=== PATIENT | female | born 1980 | race Caucasian/White ===

== ENCOUNTER → 2017-12-03 14:28 | Outpatient (CLI) | payer MEDICAID, SELFPAY ==
--- NOTE | 2017-12-03 14:30 | CT_ITS ---
CT chest wo con HISTORY: Solitary pulmonary nodule, follow-up abnormal chest x-ray ITS.REASON: lung nodule ORDERING PHYSICIAN: ANDERS Gordon PATIENT AGE: 37 years Technique: Axial images obtained. Sagittal and coronal reformatted images are also generated and reviewed. All CT scans at the facility use one or more dose reduction, viz: automated exposure control; ma/kV adjustment per patient size (including targeted exams where dose is matched to indication; i.e. head); or iterative reconstruction technique. CONTRAST: None COMPARISON: 11/18/2017 FINDINGS: No mediastinal or hilar mass. Normal heart size without evidence of pericardial effusion. There is a benign-appearing calcified granuloma in the right upper lobe corresponding to the abnormality noted on the radiograph and rib detail films. Mild atelectatic or fibrotic changes are present in the inferior aspect of the right upper lobe. A smaller calcified granulomas present in the right lower lobe anteriorly There is mild bronchial thickening with minimal coarsening of the bronchovascular markings which may be related to smoking-related lung disease. Calcified granuloma is present in the superior segment of the left lower lobe There are scattered small lymph nodes in the axilla measuring up to 18 x 11 mm in the left axilla and 22 x 12 mm in the right axilla. A QUALITY AUDIT REPRESENTATIVE shunt traverses the anterior chest wall in the subcutaneous tissues just to the right of midline. The shunt tube does appear disrupted as described in the radiograph report in the presternal region. IMPRESSION: 1. Radiographic abnormality corresponds to benign-appearing calcified granuloma. There are other benign-appearing calcified granulomas as well indicating old granulomatous disease. 2. No suspicious pulmonary nodules evident. 3. Hyperinflation with bronchial thickening and mild coarsening of the bronchovascular markings suggesting smoking-related lung disease. 4. Mild axillary adenopathy. 5. Disrupted QUALITY AUDIT REPRESENTATIVE shunt HEART: Unremarkable. Normal heart size. No significant pericardial effusion. MEDIASTINAL AND HILAR STRUCTURES: No mediastinal or hilar mass evident. No dominant adenopathy. PULMONARY ARTERIES: No pulmonary embolus evident. AORTA: No acute finding. No thoracic aortic aneurysm or dissection evident LUNGS: Unremarkable. No mass or consolidation. PLEURAL SPACES: No significant effusion. No evidence of pneumothorax. BONY STRUCTURES: No acute bony abnormalities apparent LYMPH NODES: No enlarged lymph nodes evident UPPER ABDOMEN: Unremarkable ADDITIONAL FINDINGS: No other significant abnormalities IMPRESSION:
== END ==
PROVIDERS: Family Provider Family Medicine; PCP Physician Assistant; Visit Provider Physician Assistant
DX: R91.1 Solitary pulmonary nodule (principal)
CPT/HCPCS: 71250

== ENCOUNTER → 2019-03-13 10:33 | Outpatient (CLI) | payer MEDICAID, SELFPAY ==
--- NOTE | 2019-03-13 10:38 | CT_ITS ---
PROCEDURE: CT SOFT TISSUE NECK WO/W CON CLINICAL HISTORY: Intraventricular shunt dysfunction Shunt dysfunction, broken shunt in mid neck with discomfort feeling the scant thank COMPARISON: CXR2V XR chest 2V from 11/18/[address] chest wo con from 12/03/2017 TECHNIQUE: Oral Contrast: 75ml Optiray 350 IV Contrast: None Axial images obtained with sagittal and coronal reformats. All CT scans at the facility use one or more dose reduction, viz: automated exposure control, ma/kV adjustment per patient size (including targeted exams where dose is matched to indication, i.e. head), or iterative reconstruction technique. FINDINGS: There is a shunt tube noted traversing the right side of the neck. The proximal aspect is not visualized in the distal aspect is not visualized. The shunt tube does not appear discontinuous in the neck. The shunt tube appears thickened in the neck becoming normal caliber at the lower cervical region and in the coming thickened again at the supraclavicular area and may be due to partial calcification of the shunt. There is no abscess or fluid collection around the shunt tube. The shunt is in the subcutaneous tissues and not within the in the muscular structures or deep fascial planes. Scattered small lymph nodes are present in the neck. The parotid and submandibular glands have an unremarkable appearance. The nasopharynx, oropharynx, hypopharynx, and larynx have an unremarkable appearance as does the thyroid gland. The lung apices show no acute finding. There are mild degenerative changes in the lower cervical spine with mild degenerative disc disease at C5-6 and mild cervical curvature convex left. IMPRESSION: 1. LEAD OXIDE MILL TENDER shunt present as described above which appears thickened in portions of the shunt suggesting calcification. The shunt does not appear discontinuous in the imaged portions on this exam 2. No abnormal fluid collections or abnormal position of the shunt. 3. Scattered small lymph nodes in the neck Dictated by: Mushtaq Arnett MD 03/13/2019 14:25 Signed by: <Electronically signed by Mushtaq Arnett MD in [place]> 03/13/2019 14:25
== END ==
PROVIDERS: PCP Physician Assistant; Visit Provider Physician Assistant
DX: M54.2 Cervicalgia (principal); R13.10 Dysphagia, unspecified; Z98.2 Presence of cerebrospinal fluid drainage device
CPT/HCPCS: 70492; Q9967

== ENCOUNTER 2020-01-04 18:42 | Emergency (ER) | payer MEDICAID, SELFPAY ==
[2020-01-04 18:43] VITALS: BP 131/86; PULSE 88; RESP 17; TEMP 36.6; O2SAT 100; BMI 30.8
--- NOTE | 2020-01-04 19:00 | HMH.EDUTC ---
[facility] [place] Disposition Clinical Impression: Conjunctivitis Qualifiers: Conjunctivitis type: unspecified Laterality: right Qualified Code(s): H10.9 - Unspecified conjunctivitis Disposition: Home, Self-Care Condition on Discharge: Good Instructions: Conjunctivitis, DI for Conjunctivitis, Gentamicin Ophthalmic Additional Instructions: Make sure to clean eye well with baby shampoo and water to remove matting and drainage from eye *Make sure to wash hands well before and after applying drops Return if needed Follow up with Eye Doctor if no improvement and immediately if any worsening of symptoms Straight to ER if any life threatening symptoms Follow up with PCP if needed Prescriptions: Gentamicin Sulfate [Garamycin 0.3% opth hortensia 5mL] 1 - 2 drops EYE-RIGHT Q4H #1 drops Prescription Printed Referrals: Rosi Davis PA [Primary Care Provider] - As needed Dr Salas [Other] Time of Disposition: 19:07 Medical Decision Making - Arpan Inquiry Pt receiving controlled substance: No Arpan was queried for this patient: No Vital Signs: 01/04/20 18:43 Temperature 97.8 F Temperature Source Oral Pulse Rate [Radial] 88 Respiratory Rate 17 Blood Pressure [Right Arm] 131/86 Blood Pressure Mean [Right Arm] 101 Blood Pressure Source [Right Arm] Automatic Cuff Blood Pressure Position [Right Arm] Sitting 02 Sat by Pulse Oximetry 100 Oxygen Delivery Method Room Air [facility] [place] HPI - General Stated complaint: Possible pink eye Time Seen by Provider: 01/04/20 19:00 Mode of Arrival: Ambulatory Source of Information: Patient Limitations: No Limitations Description of Symptoms (Recalled from Triage Doc. by RN): possible pink eye HEENT Symptoms (Recalled from RN notes): Yes Resp Symptoms (Recalled from RN notes): No Skin Symptoms (Recalled from RN notes): No MS Symptoms (Recalled from RN notes): No Functional Status (Recalled from RN notes): wnl - History of Present Illness Provider Complaint: Patient states that for the last couple of days her right eye was getting red and irritated States that she thought it was stress and would go away and started having some drainage from it and having matting and someone told her it looked like pink eye so she came in to get it checked - Related Data Previous Rx's Medication Instructions Recorded cephALEXin [Keflex 500mg Cap] 500 mg PO Q6H 7 Days #28 cap 05/08/19 desmopressin 0.2 mg tablet 0.2 mg PO BID #180 tab 10/14/19 Gentamicin Sulfate [Garamycin 0.3% 1 - 2 drops EYE-RIGHT Q4H #1 drops 01/04/20 opth hortensia 5mL] Allergies Allergy/AdvReac Type Severity Reaction Status Date / Time No Known Allergies Allergy Verified 02/27/19 15:29 - Worker's Comp Is this a Worker's Comp case?: No [facility] History - Hepatitis A Screen Drug use history?: No High risk sexual behaviors?: No History of sexually transmitted infection?: No Currently employed?: No Childcare worker?: No Do you have indoor plumbing?: Yes Do you have electricity?: Yes Attestation statement:: This patient has been screened for Hepatitis A risk factors. I have reviewed the patient's past medical history: Yes Medical History: Reports:: Deep Vein Thrombosis Denies:: Cancer, Diabetes Mellitus Type 1, Diabetes Mellitus Type 2, Hypertension, MRSA Laterality Cases: Bilateral: Tonsillectomy Other Surgeries: Yes: Amputation: No Fractures: No Comment: Brain surgery, aneurysm. - Social History Educational Level: Completed High School Smoking Status: Current every day smoker Tobacco Type: cigarettes # Packs/Day (cigarettes): 1 Alcohol Intake: never Substance Use Type: denies use Occupational Status: employed Housing: house Family Hx:: Heart Attack, Thyroid Disorder, Coronary Artery Disease, Hypertension ROS Obtained: Yes All systems reviewed & no additional complaints, Yes Systems reviewed as appropriate & no additional complaints - Eyes Eyes: Reports eye discharge, Reports other (redness and mild swell
[2020-01-04 19:08] VITALS: BP 131/86; PULSE 88; RESP 17; TEMP 36.6; O2SAT 100
== END 2020-01-04 19:10 | disposition home or self-care (01) ==
PROVIDERS: Emergency Provider Nurse Practitioner; PCP Physician Assistant
DX: H10.31 Unspecified acute conjunctivitis, right eye (principal); F17.210 Nicotine dependence, cigarettes, uncomplicated; Z86.718 Personal history of other venous thrombosis and embolism; Z90.09 Acquired absence of other part of head and neck
CPT/HCPCS: 99201

== ENCOUNTER 2020-04-16 05:58 | Emergency (ER) | payer MEDICAID, SELFPAY ==
[2020-04-16 06:01] VITALS: BP 147/83; PULSE 79; RESP 18; TEMP 37; O2SAT 98; BMI 32.3
--- NOTE | 2020-04-16 06:01 | ECG_ITS ---
APPROVED REPORT Exam: Resting ECG HR:75 bpm ECG Measurements Heart Rate 75 AXES UT 172 P 70 QRSd 84 QRS 54 QT 406 T 20 QTc 453 <Conclusion> Normal sinus rhythm Normal ECG Electronically signed by : Vishal Allred, 04/17/2020 06:25:37
--- NOTE | 2020-04-16 06:07 | XR_ITS ---
PROCEDURE: XR CHEST 2V CLINICAL HISTORY: CHEST PRESSURE COMPARISON: CR CXR2V XR chest 2V from 11/18/2017 CR [id number] XR ribs LT min 3V w CXR1V from 11/18/[address] chest wo con from 12/03/2017 FINDINGS: Mild cardiomegaly without failure. There is silhouetting out of the right heart border with increased density along the right heart border similar to the previous exam consistent with overlying vasculature. No acute bony abnormalities. A TRIMMING CASER shunt is present on the right. The lower thoracic and upper abdominal component however is not well demonstrated. IMPRESSION: No acute findings. Dictated by: Mushtaq Arnett MD 04/16/2020 06:41 Mushtaq Arnett MD in [place] 04/16/2020 06:41
--- NOTE | 2020-04-16 06:14 | HMH.EDGENADL ---
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 Follow up with your PCP for chest pain, return if symptoms worsen or you have concerns regarding your condition. Referrals: Rosi Davis PA [Primary Care Provider] - - Critical Care Critical Care Time: No Attestation: On 04/16/20, the high probability of a clinically significant, sudden or life threatening deterioration of the following system(s) required my full and direct attention, intervention and personal management. The time I documented below is in addition to time spent performing reported procedures but includes the following listed in this critical care notation. Medical Decision Making - Medical Records Medical records reviewed: Yes: I reviewed the patient's medical records. - Arpan Inquiry Pt receiving controlled substance: No Vital Signs: 04/16/20 06:01 04/16/20 07:07 04/16/20 08:42 Temperature 98.6 F Temperature Source Oral Pulse Rate Pulse Rate [Left] 79 60 58 L Respiratory Rate 18 16 Blood Pressure Blood Pressure [Right Arm] 147/83 H 131/77 116/72 Blood Pressure Mean [Right Arm] 104 95 86 Blood Pressure Source Blood Pressure Source [Right Arm] Automatic Cuff Automatic Cuff Automatic Cuff Blood Pressure Position Blood Pressure Position [Right Arm] Sitting Sitting Sitting 02 Sat by Pulse Oximetry 98 97 98 Oxygen Delivery Method Room Air Room Air Room Air 04/16/20 09:19 Temperature 98.6 F Temperature Source Oral Pulse Rate 69 Pulse Rate [Left] Respiratory Rate 19 Blood Pressure 123/71 Blood Pressure [Right Arm] Blood Pressure Mean [Right Arm] Blood Pressure Source Automatic Cuff Blood Pressure Source [Right Arm] Blood Pressure Position Sitting Blood Pressure Position [Right Arm] 02 Sat by Pulse Oximetry Oxygen Delivery Method Room Air - Lab Data Lab Results 04/16/20 06:15: WBC 9.2, RBC 4.77, Hgb 14.6, Hct 42.9, MCV 90.0, MCH 30.7, MCHC 34.1, RDW 13.7, Plt Count 276, MPV 8.2, Neut % (Auto) 58.8, Lymph % (Auto) 27.5, [place] % (Auto) 5.9, Eos % (Auto) 7.1, Baso % (Auto) 0.5, Neut # (Auto) 5.4, Lymph # (Auto) 2.5, [place] # (Auto) 0.5, Eos # (Auto) 0.7 H, Baso # (Auto) 0.1 04/16/20 06:15: Sodium 139, Potassium 4.2, Chloride 102, Carbon Dioxide 27, Anion Gap 14.2, BUN 13, Creatinine 0.60, Estimated Creat Clear 197, Estimated GFR 111, Est GFR ( Amer) 135, Glucose 115 H, Calcium 9.2, Troponin I < 0.01 04/16/20 08:11: Troponin I < 0.01 Result diagrams: 04/16/20 06:15 04/16/20 06:15 Orders (Tests/Meds): ED MEDICATIONS Discontinued Medications Generic Name Dose Route Start Last Admin Trade Name Freq PRN Reason Stop Dose Admin Aspirin 324 mg 04/16/20 06:07 04/16/20 06:11 Aspirin 81mg Chewable Tablet PO 04/16/20 06:08 324 mg ONCE ONE Administration Medical Decision Narrative: At this point, the exact cause of the patient's current symptom complex is unknown. Initial EKG is nondiagnostic and initial delta troponin testing protocols are within normal limits. At the present time, I doubt pulmonary embolus secondary to the lack of tachycardia, tachypnea, or hypoxia. The patient is also PERC negative. 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 Doubt pneumothorax given good bilateral breath sounds and chest X ray with good lung markings out to the periphery. No signs suggestive of pne
--- NOTE | 2020-04-16 06:26 | CT_ITS ---
PROCEDURE: CT ANGIO CHEST CLINCIAL INDICATION: chest pain Chest pain, shortness of air, current smoker COMPARISON: No exams were available for comparison TECHNIQUE: IV Contrast: 70ML OPTIRAY 350 Axial images obtained with sagittal and coronal reformats. All CT scans at the facility use one or more dose reduction, viz: automated exposure control, ma/kV adjustment per patient size (including targeted exams where dose is matched to indication, i.e. head), or iterative reconstruction technique. FINDINGS: HEART AND MEDIASTINAL STRUCTURES: No evidence of pulmonary embolus, aortic aneurysm or dissection. No mediastinal or hilar mass or adenopathy. Mild nonspecific thickening of the distal esophagus is noted. LUNGS AND PLEURAL SPACES: There are minimal atelectatic changes in the right middle lobe. There is evidence of old granulomatous disease. No lobar consolidation or collapse. BONY STRUCTURES: No acute bony abnormalities apparent. UPPER ABDOMEN: There are few small nodes in the celiac region measuring up to 1.4 cm. Mildly prominent portal nodes are present as well at 2.6 cm. ADDITIONAL FINDINGS: There is narrowing of the celiac artery at its ostium of approximately 40-50 percent with mild poststenotic dilatation. IMPRESSION: 1. No evidence of pulmonary embolus. 2. Minimal right middle lobe atelectasis otherwise no acute finding of the chest. 3. Mild adenopathy in the periportal region and epigastric area 4. 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
--- NOTE | 2020-04-16 06:44 | PC.NURSE ---
pt to RAD for CT
[2020-04-16 06:52] LABS: Basophils # 0.1 K/mm3 (0-0.2); Basophils % 0.5 % (0.1-2.0); Eosinophils # 0.7 K/mm3 (0.0-0.4); Eosinophils % 7.1 % (0.1-12.0); Hematocrit 42.9 % (37.0-47.0); Hemoglobin 14.6 g/dL (12.2-16.2); Lymphocytes # 2.5 K/mm3 (0.7-4.5); Lymphocytes % 27.5 % (10-50); Mean Corpuscular HGB Conc 34.1 g/dL (31.8-35.4); Mean Corpuscular Hemoglobin 30.7 pg (27.0-31.2); Mean Platelet Volume 8.2 fl (7.4-10.4); Monocytes # 0.5 K/mm3 (0.1-1.0); Monocytes % 5.9 % (1.7-9.3); Neutrophils # 5.4 K/mm3 (1.8-7.8); Neutrophils % 58.8 % (37.0-80.0); Platelet Count 276 K/mm3 (142-424); Red Blood Count 4.77 M/mm3 (4.20-5.40); Red Cell Distribution Width 13.7 % (11.5-17.5); White Blood Count 9.2 K/mm3 (4.8-10.8)
[2020-04-16 07:07] VITALS: BP 131/77; PULSE 60; O2SAT 97
[2020-04-16 07:07] LABS: Chloride 102 mmol/L (98-107); Potassium 4.2 mmoL/L (3.5-5.1); Sodium 139 mmol/L (136-145)
--- NOTE | 2020-04-16 07:08 | PC.NURSE ---
Pt reports continuing pain in her back at this time.
[2020-04-16 07:10] LABS: Anion Gap 14.2 mEq/L (5-15); Blood Urea Nitrogen 13 mg/dl (7-17); Carbon Dioxide 27 mmol/L (22.0-30.0); Creatinine Clearance Estimated 197 mL/min (50-200); Estimated Glomerular Filt Rate 111 ml/min (>60); GFR (African American) 135 ML/MIN (>60)
[2020-04-16 07:11] LABS: Calcium 9.2 mg/dl (8.4-10.2); Glucose 115 mg/dl (74-100)
[2020-04-16 07:23] LABS: Troponin I < 0.01 ng/ml (0.00-0.034)
--- NOTE | 2020-04-16 07:40 | PC.NURSE ---
Pt updated about waiting on second troponin draw.
[2020-04-16 08:42] VITALS: BP 116/72; PULSE 58; RESP 16; O2SAT 98
[2020-04-16 09:04] LABS: Troponin I < 0.01 ng/ml (0.00-0.034)
[2020-04-16 09:19] VITALS: BP 123/71; PULSE 69; RESP 19; TEMP 37; O2SAT 97
== END 2020-04-16 09:20 | disposition home or self-care (01) ==
PROVIDERS: Emergency Provider Emergency Medicine; PCP Physician Assistant
DX: R07.9 Chest pain, unspecified (principal); F41.8 Other specified anxiety disorders; F17.210 Nicotine dependence, cigarettes, uncomplicated
CPT/HCPCS: 71046; 71275; 80048; 84484; 85025; 93005; 99284

== ENCOUNTER → 2020-06-16 14:56 | Outpatient (CLI) | payer MEDICAID, SELFPAY ==
[2020-06-16 15:25] LABS: Basophils # 0.1 K/mm3 (0-0.2); Basophils % 0.6 % (0.1-2.0); Eosinophils # 0.6 K/mm3 (0.0-0.4); Eosinophils % 5.9 % (0.1-12.0); Hematocrit 43.3 % (37.0-47.0); Hemoglobin 14.5 g/dL (12.2-16.2); Lymphocytes # 2.4 K/mm3 (0.7-4.5); Lymphocytes % 22.7 % (10-50); Mean Corpuscular HGB Conc 33.4 g/dL (31.8-35.4); Mean Corpuscular Hemoglobin 30.7 pg (27.0-31.2); Mean Corpuscular Volume 91.8 fl (81-99); Mean Platelet Volume 8.8 fl (7.4-10.4); Monocytes # 0.5 K/mm3 (0.1-1.0); Monocytes % 4.6 % (1.7-9.3); Neutrophils # 6.9 K/mm3 (1.8-7.8); Neutrophils % 66.1 % (37.0-80.0); Platelet Count 333 K/mm3 (142-424); Red Blood Count 4.72 M/mm3 (4.20-5.40); Red Cell Distribution Width 13.8 % (11.5-17.5); White Blood Count 10.5 K/mm3 (4.8-10.8)
[2020-06-16 15:49] LABS: 25-OH Vitamin D, Total 26.7 ng/mL (30-100); Free T4 (Free Thyroxine) 1.04 ng/dl (0.78-2.19)
[2020-06-16 16:44] LABS: Chloride 104 mmol/L (98-107); Sodium 142 mmol/L (136-145)
[2020-06-16 16:45] LABS: Potassium 4.8 mmoL/L (3.5-5.1)
[2020-06-16 16:47] LABS: Alanine Aminotransferase 31 U/L (12-78); Albumin Level 4.5 g/dl (3.5-5.0); Albumin/Globulin Ratio 1.6 (1.1-1.8); Alkaline Phosphatase 95 U/L (38-126); Anion Gap 13.8 mEq/L (5-15); Aspartate Amino Transferase 30 U/L (14-36); Bilirubin,Total 0.5 mg/dl (0.2-1.3); Blood Urea Nitrogen 12 mg/dl (7-17); Carbon Dioxide 29 mmol/L (22.0-30.0); Cholesterol 234 mg/dl (140-200); Estimated Glomerular Filt Rate 79 ml/min (>60); GFR (African American) 96 ML/MIN (>60); Globulin 2.8 g/dL (1.3-3.2); Total Protein,Serum 7.3 g/dl (6.3-8.2); Triglycerides 207 mg/dl (30-150); VLDL Cholesterol 41 mg/dL (0-40)
[2020-06-16 16:48] LABS: Calcium 9.8 mg/dl (8.4-10.2); Chol/HDL Ratio 6.7 (1-3.5); Glucose 94 mg/dl (74-100); HDL Cholesterol 35 mg/dl (40-60)
[2020-06-16 16:59] LABS: Direct LDL Cholesterol 148.59 mg/dL (100-129)
[2020-06-19 07:30] LABS: Hep A Ab, IgM Negative (Negative); Hepatitis B Core Antibody IgM Negative (Negative); Hepatitis B Surface Antigen Negative (Negative)
[2020-06-19 08:08] LABS: Hepatitis C Antibody 0.1 s/co ratio (0.0-0.9)
== END ==
PROVIDERS: Visit Provider Physician Assistant
DX: R53.83 Other fatigue (principal); Z20.5 Contact with and (suspected) exposure to viral hepatitis; E55.9 Vitamin D deficiency, unspecified
CPT/HCPCS: 80053; 80061; 80074; 82306; 84439; 84443; 85025

== ENCOUNTER → 2020-06-29 10:31 | Outpatient (CLI) | payer MEDICAID, SELFPAY ==
--- NOTE | 2020-06-29 10:31 | MM_ITS ---
PROCEDURE: MM DIG SCREENING MAMM BI W/CAD Referring Doctor: Rosi Davis Patient Age:40Y CLINICAL INDICATION: Breast cancer screening the. No hormones no new complaints noncontributory family history the COMPARISON: MG DMDBAV DIG MAMM-DX BARRETT ADD VIEWS from 01/13/2014 MG DMDXUR DIG MAMM-DX UNI-RT from 08/21/2014 MG DMSB DIG MAMM-SCREEN BARRETT W/CAD from 09/12/2016 TECHNIQUE: Standard CC and MLO images were obtained. R2 CAD reviewed. Bilateral digital breast tomosynthesis included. Additional axillary CC views bilateral included FINDINGS: [id number] fibroglandular elements most evident towards upper-outer quadrant. Overall lower density breast with moderate fatty changes. Mild asymmetry appears fairly stable. Left breast: stable with no new areas of concern. Follow-up left mammogram 1 year. Right breast. On today's MLO view there is slight increased density at the posterior margin of the image. This region was specifically evaluated on previous studies including spot films from 2014. Today's CC view appear stable with a small area fibroglandular tissue at the deep breast 12 o'clock which likely corresponds. Of also this area seems to dissipate somewhat on the tomosynthesis views. However I would suggest a follow-up right mammogram in 6 months to confirm stability hopefully with routine protocol thereafter IMPRESSION: Right breast: Follow-up mammogram 6 months Minimal area increased density at very posterior margin today's MLO view today-this most likely corresponds with a longstanding minor area of fibroglandular tissue with likely corresponding stable area on CC view (. Also this area previously evaluated here with spot views in 2014.). However to further confirm stability a follow-up right mammogram in 6months the would be suggested, to be cautious Left breast-stable with no new areas of concern. Follow-up left mammogram 1 year BI-RAD Category: 3 Probably Benign Finding Short Term Follow-up FOLLOW-UP: 6M 6 Month Follow-up Recommend follow-up right mammogram 6 is months to better confirm stability of asymmetric area density (A letter has been sent to the patient regarding results of the study.) Dictated by: Felipe Rodriguez MD 06/30/2020 08:47 Felipe Rodriguez MD in [place] 06/30/2020 08:47
== END ==
PROVIDERS: PCP Physician Assistant; Visit Provider Physician Assistant
DX: Z12.31 Encounter for screening mammogram for malignant neoplasm of breast (principal)
CPT/HCPCS: 77063; 77067

== ENCOUNTER 2020-07-29 12:10 | Emergency (ER) | payer MEDICAID, SELFPAY ==
[2020-07-29 12:11] VITALS: BP 115/79; PULSE 71; RESP 16; TEMP 37; O2SAT 95; BMI 34.0
--- NOTE | 2020-07-29 12:56 | HMH.EDUTC ---
[facility] [place] Disposition Clinical Impression: Impacted cerumen of both ears Disposition: Home, Self-Care Condition on Discharge: Good Instructions: DI for Cerumen Impaction, Cerumen Impaction, How to Use Ear Drops Additional Instructions: Follow up with your primary care physician. Use the ear drops as directed. GO TO THE ER FOR ANY WORSENING SYMPTOMS OR CONCERNS Prescriptions: Neomycin/Polymyxin B Sulf/Hc [Rxbiufrk-Jxfzeimfv-AS Otic Susp 10mL] 3 drops EAR-BOTH TID 7 Days #1 bottle Transmission Status: Pending to [id number] Referrals: Rosi Davis PA [Primary Care Provider] - Time of Disposition: 13:22 Medical Decision Making - Medical Records Medical records reviewed: No: I reviewed the patient's medical records. - Arpan Inquiry Pt receiving controlled substance: No Vital Signs: 07/29/20 12:11 Temperature 98.6 F Temperature Source Oral Pulse Rate [Right] 71 Respiratory Rate 16 Blood Pressure [Right Arm] 115/79 Blood Pressure Mean [Right Arm] 91 02 Sat by Pulse Oximetry 95 [facility] [place] HPI - General Stated complaint: hearing loss in lt ear Time Seen by Provider: 07/29/20 12:59 Mode of Arrival: Ambulatory Source of Information: Patient Description of Symptoms (Recalled from Triage Doc. by RN): pt c/o not being able to hear out of lt ear for 2 weeks HEENT Symptoms (Recalled from RN notes): Yes Resp Symptoms (Recalled from RN notes): No Skin Symptoms (Recalled from RN notes): No MS Symptoms (Recalled from RN notes): No Functional Status (Recalled from RN notes): wnl - History of Present Illness Provider Complaint: She states that she is not able to hear out of her left ear. She denies any injury or ear pain. She states that she has had this problem on and off for the past 1 year, but over the past 2 weeks it has been constant. She denies any other complaints. - Related Data Previous Rx's Medication Instructions Recorded diazepam 2 mg tablet 2 mg PO BID PRN #60 tab 02/03/20 atorvastatin 10 mg tablet 10 mg PO HS #30 tab 06/21/20 ergocalciferol (vitamin D2) 1,250 1,250 mcg PO WEEKLY #4 cap 06/21/20 mcg (50,000 unit) capsule escitalopram oxalate 20 mg tablet See Rx Instructions .ROUTE 06/23/20 .COMPLEX #30 tablet desmopressin 0.2 mg tablet See Rx Instructions .ROUTE 07/26/20 .COMPLEX #60 tab Neomycin/Polymyxin B Sulf/Hc 3 drops EAR-BOTH TID 7 Days #1 07/29/20 [Zdwkfnlk-Vfqjwpigs-JL Otic Susp bottle 10mL] Allergies Allergy/AdvReac Type Severity Reaction Status Date / Time No Known Allergies Allergy Verified 07/29/20 12:54 - Worker's Comp Is this a Worker's Comp case?: No Is this an [facility] Worker's Comp?: No Is this a [place] Worker's Comp?: No [facility] History - Hepatitis A Screen Drug use history?: No High risk sexual behaviors?: No History of sexually transmitted infection?: No Currently employed?: No Childcare worker?: No Do you have indoor plumbing?: Yes Do you have electricity?: Yes Attestation statement:: This patient has been screened for Hepatitis A risk factors. I have reviewed the patient's past medical history: Yes Medical History: Reports:: Deep Vein Thrombosis Denies:: Cancer, Diabetes Mellitus Type 1, Diabetes Mellitus Type 2, Hypertension, MRSA Laterality Cases: Bilateral: Tonsillectomy Other Surgeries: Yes: Amputation: No Fractures: No Comment: Brain surgery, aneurysm. - Social History Smoking Status: Current every day smoker Tobacco Type: cigarettes # Packs/Day (cigarettes): 1 Alcohol Intake: never Substance Use Type: denies use Occupational Status: employed Housing: house Family Hx:: Heart Attack, Thyroid Disorder, Coronary Artery Disease, Hypertension ROS Obtained: Yes All systems reviewed & no additional complaints - Constitutional Constitutional: Denies chills, Denies fever(s) - Eyes Eyes: Denies blurry vision, Denies change in vision, Denies eye discharge - ENT Ears, Nose, Mouth, and Throat: Denies dizzi
[2020-07-29 13:25] VITALS: BP 115/79; PULSE 71; RESP 16; TEMP 37; O2SAT 95
== END 2020-07-29 13:27 | disposition home or self-care (01) ==
PROVIDERS: Emergency Provider Nurse Practitioner Family; PCP Physician Assistant
DX: H61.23 Impacted cerumen, bilateral (principal); H91.92 Unspecified hearing loss, left ear
CPT/HCPCS: 99202; G0463

== ENCOUNTER → 2021-01-05 13:47 | Outpatient (CLI) | payer MEDICAID, SELFPAY ==
--- NOTE | 2021-01-05 13:47 | MM_ITS ---
PROCEDURE: MM DIG MAMM DX UNILAT RT CAD Digital Breast Tomosynthesis Included CLINICAL INDICATION: 6 mth f/u COMPARISON: MG DMDXUR DIG MAMM-DX UNI-RT from 08/21/2014 MG DMSB DIG MAMM-SCREEN BARRETT W/CAD from 09/12/2016 MG MM DIG SCREENING MAMM BI W/CAD from 06/29/2020 TECHNIQUE: Standard CC and MLO images and 3D Tomosynthesis was obtained. R2 CAD reviewed. FINDINGS: There are scattered fibroglandular elements which may obscure a lesion on mammography. Previously noted small focal asymmetry posterior slightly upper right breast is unchanged. No new dominant mass. No suspicious type microcalcifications or indirect evidence of malignancy. Findings are considered probably benign and bilateral digital diagnostic mammograms for continued close follow-up and to keep the patient on schedule for bilateral mammograms is recommended. IMPRESSION: Unchanged small focal asymmetry posterior slightly upper right breast. BI-RAD Category: 3 Probably Benign Finding Short Term Follow-Up FOLLOW-UP: 6M 6 Month Follow-up. Bilateral digital diagnostic mammograms in 6 months are recommended. (A letter has been sent to the patient regarding results of the study.) Dictated by: Douglas Bailey MD 01/06/2021 08:22 Douglas Bailey MD in [place] 01/06/2021 08:22
== END ==
PROVIDERS: PCP Physician Assistant; Visit Provider Physician Assistant
DX: R92.8 Other abnormal and inconclusive findings on diagnostic imaging of breast (principal)
CPT/HCPCS: 77061; 77065; G0279

== ENCOUNTER 2021-08-13 10:24 | Emergency (ER) | payer MEDICAID, SELFPAY ==
[2021-08-13 11:45] VITALS: BP 144/90; PULSE 88; RESP 19; TEMP 36.9; O2SAT 100; BMI 41.1
--- NOTE | 2021-08-13 11:48 | HMH.EDUTC ---
[facility] [place] Disposition Clinical Impression: COVID-19 virus test result unknown Disposition: Home, Self-Care Condition on Discharge: Good Instructions: DI for COVID-19 (Suspected or Confirmed ) Additional Instructions: covid swab was sent to lab, call tomorrow for results. self isolate until test results are known to be negative No sign of a bacterial infection. Likely viral. Viruses can take 7-14 days to run their course. Nasal saline and bulb syringe or nose Amrita to remove nasal drainage to help with nasal congestion. Hard to eat, drink, sleep with nasal congestion so important to keep this cleaned out. Monitor temp. Tylenol or Motrin as needed for pain or fever Encourage fluids, water, Gatorade, Powerade, Pedialyte if infant/toddler/child Warm salt water gargles Warm fluids Sore throat lozenges Sleep elevated Humidifier/vaporizer Follow-up immediately for new or worsening symptoms or no noticeable improvement over the next 48-72 hours. Referrals: Rosi Davis PA [Primary Care Provider] - Forms: Work/School Release Time of Disposition: 11:50 Medical Decision Making - Arpan Inquiry Pt receiving controlled substance: No Vital Signs: 08/13/21 11:45 Temperature 98.5 F Temperature Source Oral Pulse Rate [Left] 88 Respiratory Rate 19 Blood Pressure [Right Radial Artery] 144/90 H Blood Pressure Mean [Right Radial Artery] 108 02 Sat by Pulse Oximetry 100 Orders (Tests/Meds): ORDERS Category Date Time Status Covid-19 Nasal PCR ([facility]) Routine Lab 08/13/21 11:42 Ordered [facility] [place] HPI - General Chief complaint: Urgent Treatment Center Stated complaint: covid exposed, symptoms Time Seen by Provider: 08/13/21 11:48 Mode of Arrival: Ambulatory Source of Information: Patient Limitations: No Limitations Description of Symptoms (Recalled from Triage Doc. by RN): pt c/o loss of taste/smell and congestion x1 wk. HEENT Symptoms (Recalled from RN notes): Yes (loss of taste/smell and congestion) Resp Symptoms (Recalled from RN notes): No Skin Symptoms (Recalled from RN notes): No MS Symptoms (Recalled from RN notes): No Functional Status (Recalled from RN notes): wnl - History of Present Illness Provider Complaint: 41 yr old female c/o loss of taste/smell and congestion x1 wk - Related Data Previous Rx's Medication Instructions Recorded diazepam 2 mg tablet 2 mg PO BID PRN #60 tab 02/03/20 atorvastatin 10 mg tablet 10 mg PO HS #30 tab 06/21/20 ergocalciferol (vitamin D2) 1,250 1,250 mcg PO WEEKLY #4 cap 01/14/21 mcg (50,000 unit) capsule phenazopyridine 200 mg tablet 200 mg PO TID PRN 0 Days #6 tab 02/11/21 sulfamethoxazole 800 1 tab PO Q12H 10 Days #20 tab 02/11/21 mg-trimethoprim 160 mg tablet escitalopram oxalate 20 mg tablet See Rx Instructions .ROUTE 05/03/21 .COMPLEX #30 tab desmopressin 0.2 mg tablet See Rx Instructions .ROUTE 08/12/21 .COMPLEX #60 tab Allergies Allergy/AdvReac Type Severity Reaction Status Date / Time No Known Allergies Allergy Verified 02/11/21 11:55 - Worker's Comp Is this a Worker's Comp case?: No [facility] History - Hepatitis A Screen Drug use history?: No High risk sexual behaviors?: No History of sexually transmitted infection?: No Currently employed?: No Childcare worker?: No Do you have indoor plumbing?: Yes Do you have electricity?: Yes Attestation statement:: This patient has been screened for Hepatitis A risk factors. 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 - Social History Smoking Status: Current every day smoker Tobacco Type: cigarettes # Packs/Day (cigarettes):
[2021-08-13 12:00] VITALS: BP 144/90; PULSE 88; RESP 19; TEMP 36.9
== END 2021-08-13 12:00 | disposition home or self-care (01) ==
PROVIDERS: Emergency Provider Nurse Practitioner Family; PCP Physician Assistant
DX: U07.1 COVID-19 (principal); F41.8 Other specified anxiety disorders; E78.5 Hyperlipidemia, unspecified; F17.210 Nicotine dependence, cigarettes, uncomplicated
CPT/HCPCS: 99202; C9803; G0463; U0003; U0005

== ENCOUNTER → 2022-01-19 07:14 | Outpatient (CLI) | payer MEDICAID, SELFPAY | PROVIDERS: PCP Physician Assistant; Visit Provider Physician Assistant | DX: R10.2 Pelvic and perineal pain (principal) | CPT/HCPCS: 87086 ==

== ENCOUNTER → 2023-01-08 15:00 | Outpatient (CLI) | payer MEDICAID, SELFPAY ==
[2023-01-08 18:31] LABS: Alanine Aminotransferase 34 U/L (12-78); Albumin Level 4.2 g/dl (3.5-5.0); Albumin/Globulin Ratio 1.6 (1.1-1.8); Alkaline Phosphatase 92 U/L (38-126); Anion Gap 14.3 mEq/L (5-15); Aspartate Amino Transferase 35 U/L (14-36); Bilirubin,Total 0.7 mg/dl (0.2-1.3); Blood Urea Nitrogen 8 mg/dl (7-17); Carbon Dioxide 29 mmol/L (22.0-30.0); Chloride 98 mmol/L (98-107); Chol/HDL Ratio 6.8 (1-3.5); Cholesterol 243 mg/dl (140-200); Estimated Glomerular Filt Rate 110 ml/min (>60); GFR (African American) 133 ML/MIN (>60); Globulin 2.7 g/dL (1.3-3.2); Glucose 81 mg/dl (74-100); HDL Cholesterol 36 mg/dl (40-60); Potassium 4.3 mmoL/L (3.5-5.1); Sodium 137 mmol/L (136-145); Total Protein,Serum 6.9 g/dl (6.3-8.2); Triglycerides 257 mg/dl (30-150); VLDL Cholesterol 51 mg/dL (0-40)
[2023-01-08 18:33] LABS: Basophils # 0.1 K/mm3 (0-0.2); Basophils % 0.4 % (0.1-2.0); Eosinophils # 0.7 K/mm3 (0.0-0.4); Hematocrit 40.9 % (37.0-47.0); Hemoglobin 13.6 g/dL (12.2-16.2); Lymphocytes % 26.7 % (10-50); Mean Corpuscular HGB Conc 33.2 g/dL (31.8-35.4); Mean Corpuscular Hemoglobin 29.4 pg (27.0-31.2); Mean Corpuscular Volume 88.8 fl (81-99); Mean Platelet Volume 9.1 fl (7.4-10.4); Monocytes # 0.5 K/mm3 (0.1-1.0); Monocytes % 4.5 % (1.7-9.3); Neutrophils # 7.1 K/mm3 (1.8-7.8); Neutrophils % 62.4 % (37.0-80.0); Platelet Count 291 K/mm3 (142-424); Red Cell Distribution Width 13.4 % (11.5-17.5); White Blood Count 11.4 K/mm3 (4.8-10.8)
[2023-01-08 18:42] LABS: Direct LDL Cholesterol 143.49 mg/dL (100-129)
[2023-01-08 18:47] LABS: 25-OH Vitamin D, Total 40.1 ng/mL (30-100)
[2023-01-08 19:01] LABS: Thyroid Stimulating Hormone 2.98 uIU/mL (0.465-4.68)
== END ==
PROVIDERS: PCP Physician Assistant; Visit Provider Physician Assistant
DX: E78.5 Hyperlipidemia, unspecified (principal); E66.9 Obesity, unspecified; Z68.38 Body mass index [BMI] 38.0-38.9, adult; Z79.899 Other long term (current) drug therapy
CPT/HCPCS: 80053; 80061; 82306; 84443; 85025

== ENCOUNTER → 2023-01-19 15:24 | Outpatient (CLI) | payer MEDICAID, SELFPAY ==
--- NOTE | 2023-01-19 15:24 | MM_ITS ---
PROCEDURE INFORMATION: Exam: MG Bilateral Screening 3D Mammography Exam date and time: 01/19/2023 3:18 PM Age: 42 years old Clinical indication: Screening examination TECHNIQUE: Imaging protocol: Bilateral Screening tomosynthesis and 2D mammography including computer-aided detection (CAD) when performed. COMPARISON: 1. MG MM DIG MAMM DX UNILAT RT CAD 01/05/2021 1:55 PM 2. MG MM DIG SCREENING MAMM BI W/CAD 06/29/2020 10:32 AM FINDINGS: MAMMOGRAPHY: Breast composition: There are scattered areas of fibroglandular density. Mass: None. Architectural distortion: None. Calcifications: No suspicious calcifications. Asymmetric density: None. Skin thickening: None. Axillary adenopathy: None. IMPRESSION: No mammographic evidence of malignancy. Annual screening is recommended unless otherwise clinically indicated. ASSESSMENT: BI-RADS Category 1: Negative
== END ==
PROVIDERS: PCP Physician Assistant; Visit Provider Physician Assistant
DX: Z12.31 Encounter for screening mammogram for malignant neoplasm of breast (principal)
CPT/HCPCS: 77063; 77067